=== PATIENT | male | born 1990 | race Caucasian/White ===

== ENCOUNTER 2016-05-11 13:11 | Emergency (ER) | payer OTHER ==
[~2016-05-11] VITALS: Ht 193 cm; Wt 102.0 kg
[~2016-05-11 13:11] MED LIST: ABILIFY10 MG PO; ALBUTEROL SULF8.5 GM IH; CLONAZEPAM1 MG; EFFEXOR XR75 MG PO; EFFEXOR75 MG PO; LEXAPRO10 MG PO; NAPROSYN500 MG PO; STRATTERA40 MG PO; TRAMADOL HCL50 MG PO; ULTRAM50 MG PO; VYVANSE20 MG PO; VYVANSE30 MG PO; VYVANSE60 MG PO; Xanax PO
[2016-05-11 13:32] VITALS: BP 111/73
== END 2016-05-11 16:40 | disposition left against medical advice (07) ==
LOC: EME 13:11
DX: R05 Cough (principal); Z53.21 Procedure and treatment not carried out due to patient leaving prior to being seen by health care provider
CPT/HCPCS: 87651 90

== ENCOUNTER 2016-10-22 13:27 | Emergency (ER) | payer OTHER ==
[~2016-10-22] VITALS: Ht 193 cm; Wt 133.9 kg
[2016-10-22] MEDS ORDERED: CIPROFLOXACIN H10 ML RIGHT EYE (14:51)
[2016-10-22 15:06] VITALS: BP 122/75
== END 2016-10-22 15:06 | disposition home or self-care (01) ==
LOC: EME 13:27
DX: S05.01XA Injury of conjunctiva and corneal abrasion without foreign body, right eye, initial encounter (principal); X58.XXXA Exposure to other specified factors, initial encounter; F17.200 Nicotine dependence, unspecified, uncomplicated
CPT/HCPCS: 99281; 99283

== ENCOUNTER 2016-12-04 17:36 | Emergency (ER) | payer OTHER ==
[~2016-12-04] VITALS: Ht 193 cm; Wt 131.8 kg
[~2016-12-04 17:36] MED LIST changes: +CIPROFLOXACIN H10 ML RIGHT EYE
[2016-12-04 18:11] LABS: MCH 29.2 PG (29.0-34.0); MCHC 34.6 G/DL (30.0-36.0); MCV 84.4 FL (86-99); MEAN PLAT.VOLUME 8.6 uM^3 (9.0-12.4); PLATELET COUNT 281 K/uL (156-360); RBC DIS.WIDTH-CV 13.2 % (11.8-14.6); RBC DIS.WIDTH-SD 41.1 % (39-53); RED BLOOD COUNT 5.45 M/uL (4.00-5.50); WHITE BLOOD COUNT 7.6 K/uL (4.1-10.2)
[2016-12-04 18:19] LABS: CHLORIDE 106 mEq/L (99-109)
[2016-12-04 18:20] LABS: SODIUM 139 mEq/L (136-147)
[2016-12-04 18:22] LABS: GLUCOSE 91 mg/dL (70-99)
[2016-12-04 18:23] LABS: ANION GAP 9 MEQ/L (2-14)
[2016-12-04 18:24] LABS: TOTAL BILIRUBIN 0.4 mg/dL (0.0-1.0)
[2016-12-04 18:25] LABS: ALKALINE PHOSPHATASE 91 IU/L (3-129); GFR ESTIMATE (CALCULATED) > 59 mL/min/
[2016-12-04 18:26] LABS: UREA NITROGEN (BUN) 12 mg/dL (9-23)
[2016-12-04 19:06] LABS: LIPASE 32 U/L (1.0-51.0)
[2016-12-04 19:15] LABS: ADD MIUA? YES; BILIRUBIN NEGATIVE; BLOOD MODERATE; COLOR YELLOW ((YELLOW)); GLUCOSE (STRIP) NEGATIVE; KETONES NEGATIVE; LEUKOCYTES NEGATIVE; NITRITE NEGATIVE; PROTEIN (STRIP) 30; SPECIFIC GRAVITY 1.029 (1.000-1.030)
[2016-12-04 19:28] LABS: BACTERIA RARE /HPF; EPITHELIAL CELLS RARE /HPF; MUCUS TRACE /LPF; UCUL ADDED? NO; WHITE BLOOD CELLS 0-5 /HPF (0-5)
[2016-12-04] MEDS ORDERED: ZOFRAN ODT4 MG PO (21:03)
[2016-12-04] MEDS ORDERED: MOTRIN800 MG PO (21:03)
[2016-12-04] MEDS ORDERED: NORCO 7.5/321 TABLET PO (21:03)
[2016-12-04 21:32] VITALS: BP 151/89
== END 2016-12-04 21:33 | disposition home or self-care (01) ==
LOC: EME 17:36 → RME 17:36
DX: K82.4 Cholesterolosis of gallbladder (principal); R11.0 Nausea; F17.200 Nicotine dependence, unspecified, uncomplicated
CPT/HCPCS: 74176; 76705; 80053; 81003; 83690; 85027; 99281; 99284; J1885; J3010; J7030

== ENCOUNTER 2017-05-19 18:13 | Emergency (ER) | payer OTHER ==
[~2017-05-19] VITALS: Ht 193 cm; Wt 149.1 kg
[~2017-05-19 18:13] MED LIST changes: +MOTRIN800 MG PO; +NORCO 7.5/321 TABLET PO; +ZOFRAN ODT4 MG PO
[2017-05-19 19:12] LABS: HEMATOCRIT 43.3 % (38.0-50.0); HEMOGLOBIN 15.1 G/DL (12.5-16.6); MCH 29.7 PG (29.0-34.0); MCHC 34.9 G/DL (30.0-36.0); MCV 85.2 FL (86-99); PLATELET COUNT 200 K/uL (156-360); RBC DIS.WIDTH-CV 13.8 % (11.8-14.6); RBC DIS.WIDTH-SD 43.6 % (39-53); RED BLOOD COUNT 5.08 M/uL (4.00-5.50); WHITE BLOOD COUNT 6.1 K/uL (4.1-10.2)
[2017-05-19 19:26] LABS: ALBUMIN 4.7 g/dL (3.2-4.8); CHLORIDE 105 mEq/L (99-109); POTASSIUM 3.4 mEq/L (3.7-5.4); SODIUM 137 mEq/L (136-147)
[2017-05-19 19:28] LABS: GLUCOSE 92 mg/dL (70-99); TOTAL PROTEIN 7.7 g/dL (6.4-8.3)
[2017-05-19 19:30] LABS: TOTAL BILIRUBIN 0.5 mg/dL (0.0-1.0)
[2017-05-19 19:32] LABS: ALKALINE PHOSPHATASE 91 IU/L (3-129); CREATININE 1.1 mg/dL (0.6-1.3); GFR ESTIMATE (CALCULATED) > 59 mL/min/ (58.99-99999)
[2017-05-19 19:33] LABS: UREA NITROGEN (BUN) 10 mg/dL (9-23)
[2017-05-19 19:34] LABS: AST (GOT) 23 IU/L (2-34)
[2017-05-19 19:35] LABS: ALT (GPT) 30 IU/L (3-49)
[2017-05-19] MEDS ORDERED: TESSALON PERLE100 MG PO (20:40)
[2017-05-19] MEDS ORDERED: AUGMENTIN875 MG PO (20:40)
[2017-05-19 21:03] VITALS: BP 143/89
== END 2017-05-19 21:04 | disposition home or self-care (01) ==
LOC: EME 18:13
DX: J01.90 Acute sinusitis, unspecified (principal); Z88.8 Allergy status to other drugs, medicaments and biological substances
CPT/HCPCS: 71046; 80053; 85027; 99281; 99283

== ENCOUNTER 2017-11-09 04:34 | Emergency (ER) | payer OTHER ==
[~2017-11-09] VITALS: Ht 195.6 cm; Wt 148.4 kg
[~2017-11-09 04:34] MED LIST changes: +AUGMENTIN875 MG PO; +TESSALON PERLE100 MG PO
[2017-11-09] MEDS ORDERED: MUPIROCIN15 GM TP (05:15)
[2017-11-09] MEDS ORDERED: VALTREX1000 MG PO (05:15)
[2017-11-09 05:32] VITALS: BP 127/76
== END 2017-11-09 05:33 | disposition home or self-care (01) ==
LOC: EME 04:34
DX: B02.9 Zoster without complications (principal); Z88.8 Allergy status to other drugs, medicaments and biological substances
CPT/HCPCS: 99281; 99283